=== PATIENT | female | born 1965 | race Hispanic/Latino ===

== ENCOUNTER 2018-04-04 16:43 | Inpatient (IN) | payer SELFPAY ==
[~2018-04-04 16:43] MED LIST: ISOVUE-370 76%-LOCM 1 ML ONE; PROPOFOL 200 MG/20 ML VIAL ONE; Succinylcholine Chloride 20 MG/ML 10 ml SYRINGE FS ONE
[2018-04-04 17:27] LABS: Hemoglobin 13.3 g/dL (12.0-16.0); Mean Corpuscular HGB CONC 33.1 g/dL (32.0-36.0); Mean Corpuscular Hemoglobin 30.9 pg (27.0-31.0); Mean Corpuscular Volume 93.3 fL (78.0-98.0); Mean Platelet Volume 7.4 fL (7.4-10.4); Platelet Count 274 thou/uL (130-400); RBC Distribution Width 14.5 % (11.5-14.5); Red Blood Cell (RBC) Count 4.32 mill/uL (4.20-5.40); White Blood Cell (WBC) Count 20.2 thou/uL (4.8-10.8)
[2018-04-04 17:43] LABS: ALT (SGPT) 45 U/L (8-55); AST (SGOT) 15 U/L (5-34); Albumin 3.5 g/dL (3.5-5.0); Alkaline Phosphatase 190 U/L (40-150); Anion Gap 15 mmol/L (10-20); BUN (Urea Nitrogen) 16 mg/dL (7.0-18.7); Bilirubin, Total 1.1 mg/dL (0.2-1.2); Calc. Creatinine Clearance 0 mL/min (70-130); Calcium 9.5 mg/dL (7.8-10.44); Carbon Dioxide 23 mmol/L (22-29); Chloride 104 mmol/L (98-107); Estimated GFR-MDRD 38; Glucose 124 mg/dL (70-105); Potassium 3.9 mmol/L (3.5-5.1); Protein, Total 7.5 g/dL (6.0-8.3); Sodium 138 mmol/L (136-145)
[2018-04-04 17:52] LABS: Band 33 % (5-11); Lymphocytes 4 % (21-51); MDiff Complete? YES; Monocytes 9 % (0-10); Neutrophil 54 % (42-75); PLT Morphology Comment Appears Adequate
[2018-04-04] MEDS ORDERED: Morphine 4 MG/ML VIAL ONE (20:19)
[2018-04-04] MEDS ORDERED: Piperacillin/Tazobactam 4.5 GM VIAL ONE (20:48)
[2018-04-04] MEDS ORDERED: Bupivacaine/Epinephrine 0.25% 30 ML VIAL ONE (23:06)
--- NOTE | 2018-04-04 23:18 | CT ---
CT ABDOMEN WITH CONTRAST CT PELVIS WITH CONTRAST: DATE: 04/04/18 at 10:07 p.m. HISTORY: 52-year-old female with gluteal abscess, abdominal pain, nausea, emesis, and fever. COMPARISON: None available. TECHNIQUE: IV injection of iodinated contrast media: Isovue Oral contrast media: Not administered. FINDINGS: To the left of the intergluteal fold, there is large region of fat stranding representing edema, with extensive subcutaneous gas throughout this area, reaching deep into the tissues anteriorly and poste riorly in the medial paragluteal fat, almost reaching the mons pubis on the left. There are multiple enlarged left inguinal lymph nodes. There are multiple diverticula in the sigmoid colon and descending colon. There is a subtle, small re gion of mild fat stranding consistent with edema, adjacent to the sigmoid colon. The urinary bladder, abdominal aorta, bilateral kidneys, adrenals, pancreas, liver, spleen, and appen caryn, are normal. No small bowel dilation. No ascites or pneumoperitoneum. Extensive streaky, mostly p late-like densities in the bilateral lower lobes, left greater than right, probably presenting subseg mental atelectasis. Lap band around the proximal aspect of the stomach is visualized, but it is not c onnected to any catheter. IMPRESSION: 1. 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 2. Evidence for mild sigmoid colonic diverticulitis. 3. Laparoscopic gastric band, but without accessible catheter and external port. EVERARDO Ramachandran POS: INDIRA
[2018-04-05] MEDS ORDERED: Fentanyl 100 MCG/2 ML VIAL ONE (00:58)
[2018-04-05] MEDS ORDERED: Piperacillin/Tazobactam 4.5 GM in Sodium Chloride 0.9% 100 ML IVPB SCH (02:15)
[2018-04-05] MEDS ORDERED: Fentanyl 250 MCG/5 ML VIAL ONE (02:47)
[2018-04-05] MEDS ORDERED: Promethazine HCl 25 MG/ML VIAL IM PRN ×4 (04:10→04:11)
[2018-04-05] MEDS ORDERED: diphenhydrAMINE 50 MG/ML VIAL IVP PRN ×2 (04:10→04:11)
[2018-04-05] MEDS ORDERED: Zolpidem Tartrate 5 MG TAB PO PRN ×2 (04:10→04:11)
[2018-04-05] MEDS ORDERED: fentaNYL Citrate/PF 2,000 MCG in Sodium Chloride 0.9% 60 ML IV PRN (04:10)
[2018-04-05] MEDS ORDERED: Naloxone HCl 0.4 mg/ml Vial IV PRN ×2 (04:10→04:11)
[2018-04-05] MEDS ORDERED: Promethazine HCl 25 MG/ML VIAL SLOW IVP PRN ×2 (04:10→04:11)
[2018-04-05] MEDS ORDERED: diphenhydrAMINE 25 MG CAP PO PRN ×2 (04:10→04:11)
[2018-04-05] MEDS ORDERED: diphenhydrAMINE 50 MG/ML VIAL IM PRN ×2 (04:10→04:11)
[2018-04-05] MEDS ORDERED: Ondansetron HCl/PF 4 MG/2 ML Vial IVP PRN ×5 (04:10→05:29)
[2018-04-05] MEDS ORDERED: Communication Order-Pharmacy FS SCH ×2 (04:15)
--- NOTE | 2018-04-05 04:25 | HP ---
REASON FOR ADMISSION: Left buttock abscess. HISTORY: Mr. Leroy is a 52-year-old woman with a 3-day history of pain in the left buttock area. She had a pimple that she popped and then according to her daughter, she kept bothering it. This mor gonzalez, when she stood up, it started draining and it has not stopped draining since then. She has had fevers and chills for the past 3 days, as well as nausea and diarrhea. She does not have any known history of diabetes, but is morbidly obese and went to [place] for a gastric band about 5 weeks ago. She did well with the surgery and states that she has lost about 40 pounds since that time. PAST MEDICAL HISTORY: Morbid obesity. PAST SURGICAL HISTORY: Recent gastric band in [place]. FAMILY HISTORY: Morbid obesity. REVIEW OF SYSTEMS: Ten-system review of systems is negative except per HPI and persistent mild abdom inal pain since her surgery, which is unchanged. PHYSICAL EXAMINATION: VITAL SIGNS: The patient is afebrile, heart rate 80, blood pressure 123/73. GENERAL: Reveals a morbidly obese woman in no acute distress. She is not diaphoretic. She is not f lushed or toxic in appearance. HEENT: Unremarkable. NECK: Supple without lymphadenopathy or palpable thyroid nodules, although the neck exam is limited by morbid obesity. HEART: Regular in its rate and rhythm without murmurs, rubs, or gallops. LUNGS: Clear to auscultation bilaterally. She has a healed upper midline incision with some thinnin g of the skin, but no fluctuance or erythema. She has mild diffuse abdominal tenderness with no foca l findings. No rigidity, rebound, or guarding. She has no palpable masses or hernias. EXTREMITIES: Warm and well perfused with normal pedal pulses. NEUROLOGIC: No focal deficits. PSYCHIATRIC: Alert, oriented, and appropriate. SKIN: Her left labia and buttock are extremely swollen and erythematous with some desquamated skin a nd 2 areas of skin that appear ischemic or necrotic. She does have some drainage from the buttock ar ea, but there is obvious fluctuance and induration remaining within the labia and buttock. LABORATORY AND X-RAY FINDINGS: White count is elevated at 20 and she has a bandemia of 33%. BUN and creatinine are 16 and 1.47, glucose is 124, alkaline phosphatase is 190. Other electrolytes are unr emarkable. CT images are reviewed and I agree with the written report. The patient has a large amou nt of edema and gas in the soft tissues of the left buttock and labial area extending towards the mon s. This could represent a large gas forming abscess, but is also concerning for necrotizing soft tis izzy infection. ASSESSMENT: Large abscess or possible Shayan's. PLAN: I have recommended emergent incision and debridement in the operating room. She has been star laura on antibiotics in the emergency room of Zosyn and vancomycin. We will continue her on broad-spec trum antibiotics postoperatively. She understands that she will have open wounds, which will require ongoing wound care to heal. Incidentally, the patient also has a subtle area of stranding around th e sigmoid colon, which has multiple diverticula and this was concerning for early diverticulitis that should also be covered by her current antibiotics.
[2018-04-05] MEDS: D5 1/2 NS w/20 mEq KCL 1,000 ML IV SCH ×3 (06:11→21:53)
[2018-04-05] MEDS: Piperacillin/Tazobactam 4.5 GM in Sodium Chloride 0.9% 100 ML IVPB SCH ×3 (06:12→17:59)
[2018-04-05] MEDS: Acetaminophen 1,000 MG in Premix Bag 1 BAG IVPB SCH ×4 (06:12→17:59)
[2018-04-05 06:51] VITALS: BMI 56.8
[2018-04-05] MEDS: Enoxaparin Sodium 40 MG/0.4 ML SYRINGE SC SCH (08:45)
[2018-04-05] MEDS: Pantoprazole 40 MG VIAL IVP SCH (08:45)
--- NOTE | 2018-04-05 16:17 | PDOC.OP ---
Operative Note - Operative Note Operative Note: PROCEDURE: Extensive debridement of Shayan's gangrene DATE OF PROCEDURE: 04/05/2018 SURGEON: Artie Almonte M.D. 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 She had extensive soft tissue gas in her left buttock and perineum and severe erythema and induration of that area. Recommendation was made to proceed emergently to the operating room for incision and debridement. PROCEDURE IN DETAIL: After informed consent was obtained and appropriate broad- spectrum antibiotics continued the patient was taken to the operating room she was placed in supine position and general endotracheal anesthesia was administered. She was then placed in lithotomy position and prepped and draped in standard sterile fashion. An incision was made over the drainage point on her left buttock and a large amount of necrotic infected tissue encountered. The infectious process tracked subcutaneously anteriorly almost the level of the mons pubis and this entire area was opened up. Some of the overlying skin was nonviable and was sharply resected. All of the underlying nonviable infected fat was resected. This extended medially to the muscular fascia of the left thigh, although the fascia itself appeared viable, and all the way to the pubic ramus which was easily palpable within the wound, although not directly exposed, once the necrotic fat was resected. Medially, the rectus process extended to the dermis of the skin and was in fairly close proximity to the vaginal wall although this was not exposed. Posteriorly the infectious process extended laterally beneath the buttock and this entire area was opened up and debridement as well. Once all of the nonviable and infected tissue was resected , the patient had a large wound extending from her buttock to her mons pubis. The remaining tissues appeared viable and the foul odor encountered during debridement was no longer present within the wound. The wound was irrigated and hemostasis obtained using Bovie electrocautery as needed. The wound was then packed with 2 Betadine soaked Kerlix rolls and dressed with ABD pads and tape. Once the wound was completely covered, a Millan catheter was sterilely placed to assist with wound hygiene. The patient was extubated and taken to the recovery room in good condition. Estimated blood loss was 50 mL's. There were no complications. Specimen is pus for Gram stain and culture and a small sample of necrotic skin and subcutaneous tissue for pathology.
[2018-04-06] MEDS: Acetaminophen 1,000 MG in Premix Bag 1 BAG IVPB SCH ×2 (01:02→06:13)
[2018-04-06] MEDS: Piperacillin/Tazobactam 4.5 GM in Sodium Chloride 0.9% 100 ML IVPB SCH ×4 (01:03→17:39)
[2018-04-06] MEDS: Pantoprazole 40 MG VIAL IVP SCH (08:15)
[2018-04-06] MEDS: fentaNYL Citrate/PF 2,000 MCG in Sodium Chloride 0.9% 60 ML IV PRN (08:26)
[2018-04-06] MEDS: Enoxaparin Sodium 40 MG/0.4 ML SYRINGE SC SCH (09:01)
[2018-04-06] MEDS ORDERED: Fentanyl 100 MCG/2 ML VIAL ONE ×3 (10:58→13:37)
[2018-04-06] MEDS ORDERED: Ondansetron HCl/PF 4 MG/2 ML Vial IVP PRN (12:20)
[2018-04-06] MEDS ORDERED: Meperidine HCl/PF 25 MG/ML VIAL SLOW IVP PRN (12:20)
[2018-04-06] MEDS ORDERED: Promethazine HCl 25 MG/ML VIAL SLOW IVP PRN (12:20)
[2018-04-06] MEDS ORDERED: Promethazine HCl 25 MG/ML VIAL IM PRN (12:20)
[2018-04-06] MEDS ORDERED: Dexamethasone 20 MG/5 ML VIAL ONE (15:16)
[2018-04-06] MEDS ORDERED: Glycopyrrolate 0.2 MG/ML 5 ML SYRINGE ONE (15:16)
[2018-04-06] MEDS ORDERED: Ondansetron HCl/PF 4 MG/2 ML Vial ONE (15:16)
[2018-04-06] MEDS ORDERED: ePHEDrine/0.9% NaCl/PF SYRINGE 50 mg/10 ml ONE (15:16)
[2018-04-06] MEDS ORDERED: PROPOFOL 200 MG/20 ML VIAL ONE (15:16)
[2018-04-06] MEDS ORDERED: Succinylcholine Chloride 20 MG/ML 10 ml SYRINGE FS ONE (15:16)
[2018-04-06] MEDS ORDERED: Lidocaine 1% PF 5 ML VIAL ONE (15:16)
[2018-04-06] MEDS: D5 1/2 NS w/20 mEq KCL 1,000 ML IV SCH (15:57)
--- NOTE | 2018-04-06 16:53 | PDOC.OP ---
Operative Note - Operative Note Operative Note: PROCEDURE: Repeat washout and debridement of left Shayan's gangrene. DATE OF PROCEDURE: 04/06/2018 SURGEON: Artie Almonte M.D. 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 She has been clinically stable and returns for repeat washout. PROCEDURE IN DETAIL: After informed consent was obtained and appropriate preoperative antibodies continued the patient was taken to the operating room. She was placed in supine position and general endotracheal anesthesia was administered. She was prepped and draped in standard sterile fashion and the wound carefully examined. There was a small rim of necrotic skin posteriorly at the buttocks which was sharply excised back to healthy bleeding tissue. There were a few scattered areas of superficial necrotic fat which were sharply debrided. Underlying tissues appeared healthy and there was no evidence of continued or progressive infection. The wound was irrigated and hemostasis verified. The wound care team then arrived to place the vacuum dressing to the wound and the patient was taken to recovery and stable condition.. Estimated blood loss was minimal. There were no complications. There were no specimens.
[2018-04-06 20:41] LABS: Vancomycin, Trough 9.7 ug/mL
[2018-04-06] MEDS: Saccharomyces boulardii 250 MG CAP PO SCH (22:09)
[2018-04-07] MEDS: Piperacillin/Tazobactam 4.5 GM in Sodium Chloride 0.9% 100 ML IVPB SCH ×4 (00:15→17:20)
[2018-04-07] MEDS: D5 1/2 NS w/20 mEq KCL 1,000 ML IV SCH ×3 (00:16→21:57)
[2018-04-07 06:05] LABS: Anion Gap 15 mmol/L (10-20); BUN (Urea Nitrogen) 12 mg/dL (7.0-18.7); Calc. Creatinine Clearance 158 mL/min (70-130); Calcium 8.1 mg/dL (7.8-10.44); Carbon Dioxide 20 mmol/L (22-29); Chloride 105 mmol/L (98-107); Estimated GFR-MDRD 70; Glucose 180 mg/dL (70-105); Potassium 4.2 mmol/L (3.5-5.1); Sodium 136 mmol/L (136-145)
[2018-04-07 07:19] LABS: Band 24 % (5-11); Hemoglobin 10.5 g/dL (12.0-16.0); Lymphocytes 14 % (21-51); MDiff Complete? YES; Mean Corpuscular HGB CONC 31.7 g/dL (32.0-36.0); Mean Corpuscular Hemoglobin 29.3 pg (27.0-31.0); Mean Corpuscular Volume 92.6 fL (78.0-98.0); Monocytes 4 % (0-10); Myelocyte 1 % (0-0); Neutrophil 57 % (42-75); Platelet Count 278 thou/uL (130-400); Red Blood Cell (RBC) Count 3.58 mill/uL (4.20-5.40); White Blood Cell (WBC) Count 10.7 thou/uL (4.8-10.8)
[2018-04-07 08:25] LABS: Vancomycin, Trough 17.9 ug/mL
[2018-04-07] MEDS: Pantoprazole 40 MG VIAL IVP SCH (08:40)
[2018-04-07] MEDS: Metamucil PACK PO SCH (08:40)
[2018-04-07] MEDS: Saccharomyces boulardii 250 MG CAP PO SCH ×2 (08:40→21:56)
[2018-04-07] MEDS: Enoxaparin Sodium 40 MG/0.4 ML SYRINGE SC SCH (08:41)
[2018-04-07] MEDS: Vancomycin HCl 1.5 GM in Sodium Chloride 0.9% 250 ML 300 ML IVPB SCH ×2 (10:04→21:57)
--- NOTE | 2018-04-07 10:49 | EKG ---
Test Reason : Blood Pressure : / mmHG Vent. Rate : 056 BPM Atrial Rate : 056 BPM P-R Int : 136 ms QRS Dur : 096 ms QT Int : 470 ms P-R-T Axes : 045 079 060 degrees QTc Int : 453 ms Sinus bradycardia with Premature atrial complexes Low voltage QRS Borderline ECG No previous ECGs available Confirmed by DR. Tor ORANTES ([id number]), manager editorial YARY HOLDEN ([id number]) on 04/07/2018 10:49:14 AM Referred By: KANG Confirmed By:DR. Tor ORANTES
--- NOTE | 2018-04-07 16:39 | PDOC.GSPN ---
Surgery Progress Note: Subj - Subjective Narrative: Pt feels better. AF VS nl. WBC down to 10 and creatinine back to normal. Ambulating in room. VAC in place. Plan EUA and replacement VAC in OR tomorrow. Surgery Progress Note: Obj - Vital signs Vital signs: Vital Signs - Most Recent Temp Pulse Resp BP Pulse Ox 97.9 F 50 L 20 122/62 95 04/07/18 16:34 04/07/18 16:34 04/07/18 16:34 04/07/18 16:34 04/07/18 16:34 Surgery Progress Note: Results - Labs Result Diagrams: 04/07/18 04:59 04/07/18 04:59 Lab results: Laboratory Results - last 24 hr 04/07/18 04/07/18 04/07/18 04:59 04:59 07:44 WBC 10.7 RBC 3.58 L Hgb 10.5 L Hct 33.1 L MCV 92.6 MCH 29.3 MCHC 31.7 L RDW 15.0 H Plt Count 278 MPV 7.0 L Neutrophils % (Manual) 57 Band Neuts % (Manual) 24 H Lymphocytes % (Manual) 14 L Monocytes % (Manual) 4 Myelocytes % 1 H Sodium 136 Potassium 4.2 Chloride 105 Carbon Dioxide 20 L Anion Gap 15 BUN 12 Creatinine 0.86 Estimated GFR (MDRD) 70 Glucose 180 H Calcium 8.1 Vancomycin Trough 17.9
[2018-04-07] MEDS: fentaNYL Citrate/PF 2,000 MCG in Sodium Chloride 0.9% 60 ML IV PRN (19:44)
[2018-04-08] MEDS: Piperacillin/Tazobactam 4.5 GM in Sodium Chloride 0.9% 100 ML IVPB SCH ×4 (00:52→17:35)
[2018-04-08] MEDS: Saccharomyces boulardii 250 MG CAP PO SCH ×2 (10:47→21:37)
[2018-04-08] MEDS: Metamucil PACK PO SCH (10:47)
[2018-04-08] MEDS: Enoxaparin Sodium 40 MG/0.4 ML SYRINGE SC SCH (10:48)
[2018-04-08] MEDS: D5 1/2 NS w/20 mEq KCL 1,000 ML IV SCH ×2 (10:54→22:18)
[2018-04-08] MEDS: Vancomycin HCl 1.5 GM in Sodium Chloride 0.9% 250 ML 300 ML IVPB SCH (11:23)
[2018-04-08] MEDS ORDERED: Fentanyl 100 MCG/2 ML VIAL ONE (11:28)
[2018-04-08] MEDS ORDERED: Ketamine 50 MG/ML VIAL ONE (12:28)
[2018-04-08] MEDS ORDERED: Midazolam HCl 2 mg/2 ml Vial ONE (12:34)
[2018-04-08] MEDS ORDERED: ePHEDrine/0.9% NaCl/PF SYRINGE 50 mg/10 ml ONE (13:31)
[2018-04-08] MEDS ORDERED: PROPOFOL 200 MG/20 ML VIAL ONE (13:31)
[2018-04-08] MEDS ORDERED: Succinylcholine Chloride 20 MG/ML 10 ml SYRINGE FS ONE (13:31)
[2018-04-08] MEDS ORDERED: Meperidine HCl/PF 25 MG/ML VIAL SLOW IVP PRN (14:29)
[2018-04-08] MEDS ORDERED: Promethazine HCl 25 MG/ML VIAL SLOW IVP PRN (14:29)
[2018-04-08] MEDS ORDERED: Promethazine HCl 25 MG/ML VIAL IM PRN (14:29)
[2018-04-08] MEDS ORDERED: Ondansetron HCl/PF 4 MG/2 ML Vial IVP PRN (14:29)
[2018-04-08] MEDS: Vancomycin HCl 1.25 GM in Sodium Chloride 0.9% 250 ML 250 ML IVPB SCH (16:27)
[2018-04-08] MEDS ORDERED: HYDROcodone/Acetaminophen 7.5/325 mg Tablet PO PRN (21:54)
[2018-04-08] MEDS ORDERED: Ibuprofen 600 MG TAB PO PRN (21:54)
[2018-04-08] MEDS ORDERED: Lidocaine 1% (PF) 30 ML VIAL FS SCH (22:00)
[2018-04-08] MEDS ORDERED: Fluconazole 100 MG TAB PO SCH (22:00)
[2018-04-09] MEDS: Piperacillin/Tazobactam 4.5 GM in Sodium Chloride 0.9% 100 ML IVPB SCH ×5 (00:05→23:23)
[2018-04-09] MEDS: Vancomycin HCl 1.25 GM in Sodium Chloride 0.9% 250 ML 250 ML IVPB SCH ×2 (00:53→12:36)
[2018-04-09] MEDS: HYDROcodone/Acetaminophen 7.5/325 mg Tablet PO PRN ×4 (01:11→23:20)
[2018-04-09] MEDS: D5 1/2 NS w/20 mEq KCL 1,000 ML IV SCH (03:38)
[2018-04-09] MEDS: Enoxaparin Sodium 40 MG/0.4 ML SYRINGE SC SCH (10:07)
[2018-04-09] MEDS: Saccharomyces boulardii 250 MG CAP PO SCH ×2 (10:07→20:43)
[2018-04-09] MEDS: Metamucil PACK PO SCH (10:07)
--- NOTE | 2018-04-09 18:09 | PDOC.GSPN ---
Surgery Progress Note: Subj - Subjective Narrative: Pt feels OK, pain at wound tolerable. AF VS ok. VAC in place. Will DC FC and increase activities. EUA and VAC change in OR Saturday, then transition to VAC change at bedside next week. Home if tolerates. Surgery Progress Note: Obj - Vital signs Vital signs: Vital Signs - Most Recent Temp Pulse Resp BP Pulse Ox 98.6 F 54 L 18 161/72 H 92 L 04/09/18 15:12 04/09/18 15:12 04/09/18 15:12 04/09/18 15:12 04/09/18 15:12 Surgery Progress Note: Results - Labs Result Diagrams: 04/07/18 04:59 04/07/18 04:59 Lab results: Laboratory Results - last 24 hr 04/09/18 04/09/18 11:27 15:09 POC Glucose 125 H 111 H
[2018-04-09 23:27] LABS: Vancomycin, Trough 19.7 ug/mL
[2018-04-10] MEDS: Vancomycin HCl 1.25 GM in Sodium Chloride 0.9% 250 ML 250 ML IVPB SCH ×2 (00:19→11:53)
[2018-04-10] MEDS: HYDROcodone/Acetaminophen 7.5/325 mg Tablet PO PRN ×3 (05:31→20:27)
[2018-04-10] MEDS: Piperacillin/Tazobactam 4.5 GM in Sodium Chloride 0.9% 100 ML IVPB SCH ×3 (05:31→17:48)
[2018-04-10] MEDS: Enoxaparin Sodium 40 MG/0.4 ML SYRINGE SC SCH (09:22)
[2018-04-10] MEDS: Metamucil PACK PO SCH (09:23)
[2018-04-10] MEDS: Saccharomyces boulardii 250 MG CAP PO SCH ×2 (09:23→20:26)
--- NOTE | 2018-04-10 14:35 | PDOC.GSPN ---
Surgery Progress Note: Subj - Subjective Narrative: Patient is feeling okay. She has a little pain but it is tolerable. Mostly she is hurting in her back. She tried to sit in a chair but does too painful on her incision, so she has mostly been standing. Her VAC dressing is intact with serosanguineous drainage. We will plan on one more dressing change under anesthesia tomorrow, and transition to VAC changes at the bedside next week. If she tolerates this she'll be discharged home with outpatient VAC changes at the wound care center. Her bora VAC has already been approved. Surgery Progress Note: Obj - Vital signs Vital signs: Vital Signs - Most Recent Temp Pulse Resp BP Pulse Ox 98.2 F 57 L 20 179/99 H 94 L 04/10/18 11:50 04/10/18 11:50 04/10/18 11:50 04/10/18 11:50 04/10/18 12:00 Surgery Progress Note: Results - Labs Result Diagrams: 04/07/18 04:59 04/07/18 04:59 Lab results: Laboratory Results - last 24 hr 04/10/18 04/10/18 05:45 11:49 POC Glucose 106 129 H
[2018-04-11] MEDS: Piperacillin/Tazobactam 4.5 GM in Sodium Chloride 0.9% 100 ML IVPB SCH ×4 (00:23→18:09)
[2018-04-11] MEDS: Vancomycin HCl 1.25 GM in Sodium Chloride 0.9% 250 ML 250 ML IVPB SCH ×2 (00:24→11:43)
[2018-04-11] MEDS: HYDROcodone/Acetaminophen 7.5/325 mg Tablet PO PRN ×2 (00:37→21:34)
[2018-04-11 09:49] LABS: Anion Gap 9 mmol/L (10-20); BUN (Urea Nitrogen) 7 mg/dL (7.0-18.7); Calc. Creatinine Clearance 144 mL/min (70-130); Calcium 8.4 mg/dL (7.8-10.44); Carbon Dioxide 29 mmol/L (22-29); Chloride 105 mmol/L (98-107); Estimated GFR-MDRD 63; Glucose 109 mg/dL (70-105); Potassium 3.8 mmol/L (3.5-5.1); Sodium 139 mmol/L (136-145)
[2018-04-11] MEDS: Saccharomyces boulardii 250 MG CAP PO SCH ×2 (09:49→21:31)
[2018-04-11] MEDS: Enoxaparin Sodium 40 MG/0.4 ML SYRINGE SC SCH (09:49)
[2018-04-11] MEDS: Metamucil PACK PO SCH (09:50)
[2018-04-11 10:03] LABS: Band 11 % (5-11); Hemoglobin 11.2 g/dL (12.0-16.0); Lymphocytes 5 % (21-51); MDiff Complete? YES; Mean Corpuscular HGB CONC 33.3 g/dL (32.0-36.0); Mean Corpuscular Volume 92.8 fL (78.0-98.0); Mean Platelet Volume 6.4 fL (7.4-10.4); Monocytes 2 % (0-10); Neutrophil 82 % (42-75); PLT Morphology Comment Appears Increased; Platelet Count 410 thou/uL (130-400); RBC Distribution Width 14.8 % (11.5-14.5); Red Blood Cell (RBC) Count 3.61 mill/uL (4.20-5.40); White Blood Cell (WBC) Count 11.1 thou/uL (4.8-10.8)
[2018-04-11 11:15] LABS: Vancomycin, Trough 24.9 ug/mL
[2018-04-11] MEDS ORDERED: Lidocaine 1% PF 5 ML VIAL ONE (14:53)
[2018-04-11] MEDS ORDERED: Glycopyrrolate 0.2 MG/ML 5 ML SYRINGE ONE (14:53)
[2018-04-11] MEDS ORDERED: Succinylcholine Chloride 20 MG/ML 10 ml SYRINGE FS ONE (14:53)
[2018-04-11] MEDS ORDERED: Ondansetron HCl/PF 4 MG/2 ML Vial ONE (14:53)
[2018-04-11] MEDS ORDERED: PROPOFOL 200 MG/20 ML VIAL ONE (14:53)
[2018-04-11] MEDS ORDERED: Fentanyl 100 MCG/2 ML VIAL ONE ×2 (16:14→17:23)
[2018-04-11] MEDS ORDERED: Ondansetron HCl/PF 4 MG/2 ML Vial IVP PRN (17:21)
[2018-04-11] MEDS ORDERED: Morphine Sulfate 2 MG/ML SYRINGE SLOW IVP PRN (17:21)
[2018-04-11] MEDS ORDERED: HYDROmorphone 2 MG/ML VIAL SLOW IVP PRN (17:21)
[2018-04-12] MEDS: Piperacillin/Tazobactam 4.5 GM in Sodium Chloride 0.9% 100 ML IVPB SCH ×5 (00:31→23:58)
[2018-04-12] MEDS: Vancomycin HCl 1 GM in Premix Bag 1 BAG IVPB SCH ×2 (00:39→15:37)
[2018-04-12] MEDS: HYDROcodone/Acetaminophen 7.5/325 mg Tablet PO PRN ×3 (09:45→20:27)
[2018-04-12] MEDS: Metamucil PACK PO SCH (09:46)
[2018-04-12] MEDS: Saccharomyces boulardii 250 MG CAP PO SCH ×2 (09:46→20:26)
[2018-04-12] MEDS: Enoxaparin Sodium 40 MG/0.4 ML SYRINGE SC SCH (09:46)
--- NOTE | 2018-04-12 14:24 | TCOM ---
DATE OF SERVICE: 04/12/2018 SUBJECTIVE: The patient reports that her pain is moderate. She got out of bed and ripped the tubing out of her wound VAC, so it is no longer connected to suction. PHYSICAL EXAMINATION: VITAL SIGNS: Her temperature is 98.8, pulse 62, blood pressure 146/71. GENERAL: She is morbidly obese female, does not appear to be in any significant distress. She is ricci ving bowel movements, voiding well. LABORATORY DATA: Her white count is 11, H&H 11 and 33, platelet count 410,000. She has methicillin- resistant Staph and Morganella morganii as well as some anaerobic cocci in her wound. She is current ly on Zosyn and vancomycin. ASSESSMENT: Stable. PLAN: Continue IV antibiotics and wound care. We will get wound care to redo the wound VAC.
[2018-04-13] MEDS: HYDROcodone/Acetaminophen 7.5/325 mg Tablet PO PRN ×3 (01:13→18:41)
[2018-04-13] MEDS: Vancomycin HCl 1 GM in Premix Bag 1 BAG IVPB SCH ×2 (03:37→17:18)
[2018-04-13] MEDS: Piperacillin/Tazobactam 4.5 GM in Sodium Chloride 0.9% 100 ML IVPB SCH ×3 (05:18→18:37)
[2018-04-13] MEDS: Metamucil PACK PO SCH (09:37)
[2018-04-13] MEDS: Enoxaparin Sodium 40 MG/0.4 ML SYRINGE SC SCH (09:43)
[2018-04-13] MEDS: Saccharomyces boulardii 250 MG CAP PO SCH ×2 (09:43→20:45)
--- NOTE | 2018-04-13 15:35 | PRG ---
DATE OF SERVICE: 04/13/2018 SUBJECTIVE: The patient states her pain is about a 5/10. She is ambulating. OBJECTIVE: VITAL SIGNS: Temperature is 97.6, pulse 54, blood pressure 165/71. GENERAL: She looks fine. Awake, alert, in no apparent distress. She is voiding well. She had 2 merritt wel movements yesterday. EXTREMITIES: She has a wound VAC in place. PLAN: She is going to have a wound VAC change either tomorrow or Saturday and depending on how the wo und looks, Dr. Almonte decide if she can go home.
[2018-04-13 16:05] LABS: Vancomycin, Trough 18.4 ug/mL
[2018-04-14] MEDS: Piperacillin/Tazobactam 4.5 GM in Sodium Chloride 0.9% 100 ML IVPB SCH ×2 (01:14→06:37)
[2018-04-14] MEDS: HYDROcodone/Acetaminophen 7.5/325 mg Tablet PO PRN ×4 (01:14→23:49)
[2018-04-14] MEDS: Vancomycin HCl 1 GM in Premix Bag 1 BAG IVPB SCH (04:00)
[2018-04-14] MEDS: Enoxaparin Sodium 40 MG/0.4 ML SYRINGE SC SCH (10:30)
[2018-04-14] MEDS: Saccharomyces boulardii 250 MG CAP PO SCH ×2 (10:30→20:37)
[2018-04-14] MEDS: Clindamycin 150 MG CAP PO SCH ×3 (10:30→20:37)
[2018-04-14] MEDS: Metamucil PACK PO SCH (10:34)
[2018-04-14] MEDS: Ciprofloxacin 500 MG TAB PO SCH (20:37)
[2018-04-14] MEDS ORDERED: hydrALAZINE 20 MG/ML VIAL SLOW IVP PRN (22:19)
--- NOTE | 2018-04-14 23:49 | PDOC.PN ---
- Subjective Encounter Start Date: 04/14/18 Encounter Start Time: 21:00 CC: Elevated BP. We have been consulted to evaluated patient's BP which is 176 systolic. Patient states that she is feeling well now. Doesn't have any acute distress. - Objective MAR Reviewed: Yes Vital Signs & Weight: Vital Signs (12 hours) Temp Pulse Resp BP BP Pulse Ox 04/14/18 20:37 98.4 F 55 L 16 97 04/14/18 20:35 98.4 F 55 L 16 138/74 97 04/14/18 15:55 98.6 F 58 L 16 169/85 H 92 L Weight Admit Weight 281 lb Weight 281 lb 8 oz I&O: 04/13/18 04/14/18 04/15/18 06:59 06:59 06:59 Intake Total 1210 1540 Balance 1210 1540 Result Diagrams: 04/11/18 09:19 04/11/18 09:19 Additional Labs: Accuchecks 04/14/18 04/14/18 04/14/18 15:39 10:46 06:38 POC Glucose 107 104 116 H Phys Exam - Physical Examination Constitutional: NAD HEENT: PERRLA, moist MMs, oral pharynx no lesions Neck: no nodes, no JVD, supple, full ROM Respiratory: no wheezing, no rales, no rhonchi, clear to auscultation bilateral Cardiovascular: RRR, no significant murmur Gastrointestinal: soft, non-tender, no distention, positive bowel sounds Musculoskeletal: no edema, pulses present Neurological: non-focal, normal sensation, moves all 4 limbs Psychiatric: normal affect, A&O x 3 Deviation from normal: Abscess at left buttock Dx/Plan (1) Left buttock abscess Code(s): L02.31 - CUTANEOUS ABSCESS OF BUTTOCK Status: Acute Comment: s/p ID. follow surgery's recs. (2) Hypertension Code(s): I10 - ESSENTIAL (PRIMARY) HYPERTENSION Status: Acute Comment: Hydralazin prn for systolic of 180. Started lisnopril 10mg and hydrochlorothiazide 12.5 since the blood pressure has been uncontrolled at 176 systolic. Follow blood pressure closely. (3) Obesity Code(s): E66.9 - OBESITY, UNSPECIFIED Status: Acute - Plan * . See above. Review of Systems - Review of Systems Constitutional: negative: fever, chills, sweats, weakness, malaise, other Eyes: negative: Pain, Vision Change, Conjunctivae Inflammation, Eyelid Inflammation, Redness, Other ENT: negative: Ear Pain, Ear Discharge, Nose Pain, Nose Discharge, Nose Congestion, Mouth Pain, Mouth Swelling, Throat Pain, Throat Swelling, Other Respiratory: negative: Cough, Dry, Shortness of Breath, Hemoptysis, SOB with Excertion, Pleuritic Pain, Sputum, Wheezing Cardiovascular: negative: chest pain, palpitations, orthopnea, paroxysmal nocturnal dyspnea, edema, light headedness, other Gastrointestinal: negative: Nausea, Vomiting, Abdominal Pain, Diarrhea, Constipation, Melena, Hematochezia, Other Genitourinary: negative: Dysuria, Frequency, Incontinence, Hematuria, Retention , Other Musculoskeletal: negative: Neck Pain, Shoulder Pain, Arm Pain, Back Pain, Hand Pain, Leg Pain, Foot Pain, Other Skin: Other (Abscess at the buttock with wound vac in place. ). negative: Rash , Lesions, Jm, Bruising Neurological: negative: Weakness, Numbness, Incoordination, Change in Speech, Confusion, Seizures, Other - Medications/Allergies Allergies/Adverse Reactions: Allergies Allergy/AdvReac Type Severity Reaction Status Date / Time No Known Drug Allergies Allergy Verified 04/05/18 05:20 Medications: Current Medications Hydrocodone Bitart/Acetaminophen ([place] 7.5/325) 1 tab PO Q4H PRN PRN Reason: Mild-Moderate Pain (1-5) Hydrocodone Bitart/Acetaminophen ([place] 7.5/325) 2 tab PO Q4H PRN PRN Reason: Moderate to Severe Pain (6-10) Last Admin: 04/14/18 16:01 Dose: 2 tab Ciprofloxacin (Cipro) 500 mg PO 0600,2000 [facility] Last Admin: 04/14/18 20:37 Dose: 500 mg Clindamycin HCl (Cleocin) 300 mg PO 0300,0900,1500,2100 [facility] Last Admin: 04/14/18 20:37 Dose: 300 mg Diphenhydramine HCl (Benadryl) 25 mg IVP Q3H PRN PRN Reason: Itching Diphenhydramine HCl (Benadryl) 25 mg PO Q3H PRN PRN Reason: Itching Last Admin: 04/13/18 18:41 Dose: 25 mg Diphenhydramine HCl (Benadryl) 25 mg IM Q3H PRN PRN Reason: Itching Enoxaparin Sodium (Lovenox) 40 mg SC 0900 [facility] Last Admin: 04/14/18 10:30 Dose: 40 mg Hydralazine HCl (Apresoline) 10 mg SLOW IVP Q4H PRN PRN Reason: SBP > 180/100 Hydrochlorothiazide (Hydrochlorothiazide) 12.5 mg PO DAILY [facility] Ibuprofen (Motrin) 600 mg PO TID-WM PRN PRN Reason: Pain Last Admin: 04/12/18 20:27 Dose: 600 mg Lidocaine HCl (Xylocaine 1% Pf) 0 ml FS 1300 [facility] Stop: 04/15/18 15:00 Lisinopril (Zestril) 10 mg PO DAILY [facility] Morphine Sulfate (Morphine) 2 mg SLOW IVP Q1H PRN PRN Reason: BREAKTHRU PAIN Last Admin: 04/12/18 16:07 Dose: 2 mg Naloxone HCl (Narcan) 0.2 mg IV Q5MIN PRN PRN Reason: Opiate Reversal Ondansetron HCl (Zofran) 4 mg IVP Q6H PRN PRN Reason: Nausea/Vomiting Ondansetron HCl (Zofran) 4 mg IVP Q6H PRN PRN Reason: Nausea/Vomiting Pantoprazole Sodium (Protonix) 40 mg PO DAILY [facility] Last Admin: 04/14/18 10:30 Dose: 40 mg Promethazine HCl (Phenergan) 12.5 mg IM Q4H PRN PRN Reason: Nausea/Vomiting Last Admin: 04/13/18 20:45 Dose: 12.5 mg Psyllium Hydrophilic Mucilloid (Metamucil) 1 pk PO QAM [facility] Last Admin: 04/14/18 10:34 Dose: Not Given Saccharomyces Boulardii (Florastor) 250 mg PO BID [facility] Last Admin: 04/14/18 20:37 Dose: 250 mg Sodium Chloride (Flush - Normal Saline) 10 ml IVF Q12HR [facility] Last Admin: 04/14/18 20:37 Dose: 10 ml Sodium Chloride (Flush - Normal Saline) 10 ml IVF PRN PRN PRN Reason: Saline Flush Last Admin: 04/12/18 00:39 Dose: 10 ml Zolpidem Tartrate (Ambien) 5 mg PO HSPRN PRN PRN Reason: Insomnia
[2018-04-15] MEDS: Clindamycin 150 MG CAP PO SCH ×3 (03:59→14:20)
[2018-04-15] MEDS: HYDROcodone/Acetaminophen 7.5/325 mg Tablet PO PRN ×3 (04:04→14:20)
[2018-04-15] MEDS: Ciprofloxacin 500 MG TAB PO SCH (05:26)
[2018-04-15] MEDS ORDERED: Lisinopril 10 MG TAB PO SCH (09:00)
[2018-04-15] MEDS ORDERED: Hydrochlorothiazide 25 MG TAB PO SCH (09:00)
[2018-04-15] MEDS: Saccharomyces boulardii 250 MG CAP PO SCH (09:49)
[2018-04-15] MEDS: Enoxaparin Sodium 40 MG/0.4 ML SYRINGE SC SCH (09:49)
[2018-04-15] MEDS: Metamucil PACK PO SCH (10:32)
[2018-04-15] MEDS ORDERED: Lidocaine 1% MPF 2 ML VIAL NERVE BLCK SCH (12:45)
[2018-04-15] MEDS ORDERED: Lidocaine 1% PF 10 ML AMP FS SCH (13:00)
--- NOTE | 2018-04-15 16:09 | PDOC.PN ---
- Subjective Encounter Start Date: 04/15/18 Encounter Start Time: 16:00 Subjective: f/u for HTN initiated on Metoprolol and HCTZ. No new complaints. - Objective MAR Reviewed: Yes Vital Signs & Weight: Vital Signs (12 hours) Temp Pulse Resp BP BP Pulse Ox 04/15/18 11:40 98.3 F 76 20 141/61 H 91 L 04/15/18 09:49 156/76 H 04/15/18 08:33 98.5 F 57 L 16 92 L 04/15/18 08:00 98.3 F 58 L 18 156/76 H 92 L Weight Admit Weight 281 lb Weight 281 lb 8 oz I&O: 04/14/18 04/15/18 04/16/18 06:59 06:59 06:59 Intake Total 1540 Balance 1540 Result Diagrams: 04/11/18 09:19 04/11/18 09:19 Additional Labs: Accuchecks 04/14/18 15:39 POC Glucose 107 Phys Exam - Physical Examination Constitutional: NAD HEENT: PERRLA, sclera anicteric, oral pharynx no lesions Neck: no nodes, no JVD, supple, full ROM Respiratory: no wheezing, no rales, no rhonchi, clear to auscultation bilateral S1, S2 Cardiovascular: RRR, no significant murmur, no rub, gallop Gastrointestinal: soft, non-tender, no distention, positive bowel sounds L buttock wound vac in place Musculoskeletal: pulses present Neurological: normal sensation, moves all 4 limbs Psychiatric: normal affect, A&O x 3 Skin: normal turgor, cap refill <2 seconds Dx/Plan (1) Hypertension Code(s): I10 - ESSENTIAL (PRIMARY) HYPERTENSION Status: Chronic Qualifiers: Hypertension type: essential hypertension Qualified Code(s): I10 - Essential (primary) hypertension Comment: Hydralazin prn for systolic of 180. Started lisnopril 10mg and hydrochlorothiazide 12.5mg daily, continue to monitor trend and titrate to clinical response (2) Left buttock abscess Code(s): L02.31 - CUTANEOUS ABSCESS OF BUTTOCK Status: Acute Comment: s/p ID for Shayan's gangrene, Continue Clindamycin, local wound care with wound vac (3) Obesity Code(s): E66.9 - OBESITY, UNSPECIFIED Status: Chronic Comment: Heart healthy diet - Plan continue antibiotics, rn social services, DVT proph w/SCDs Stable overall -: Continue HCTZ and Metoprolol, titrate for optimal control -: WCT for local care and wound vac -: Continue Clindamycin 300mg QID -: AM lab: BMP, TSH * .
[2018-04-15 16:33] VITALS: BP 132/65; TEMP 98
--- NOTE | 2018-04-16 17:35 | PDOC.OP ---
Operative Note - Operative Note Operative Note: PROCEDURE: Examination under anesthesia DATE OF PROCEDURE: 04/08/2018 SURGEON: Artie Almonte M.D. 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 At the time of her last operation she required only minimal debridement but her pain is still too severe for her to tolerate VAC dressings at the bedside. The recommendation was made to proceed to the operating room for examination under anesthesia in fact dressing change. PROCEDURE IN DETAIL: After informed consent was obtained and appropriate preoperative antibodies continued the patient was taken to the operating which was placed in supine position and general intravenous anesthesia was administered. She was placed in lithotomy position with appropriate padding and support of her legs and the VAC dressing was removed. The wound was carefully examined did not have any evidence of necrotic or infected tissue. No debridement was necessary. The wound care team then replaced the VAC dressing and the patient was extubated and taken to recovery in good condition. Estimated blood loss is minimal. There were no complications and no specimens..
--- NOTE | 2018-04-16 17:39 | PDOC.OP ---
Operative Note - Operative Note Operative Note: PROCEDURE: Examination under anesthesia DATE OF PROCEDURE: 04/11/18 SURGEON: Artie Almonte M.D. 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 Her wound appears to be stable without evidence of ongoing infection but she is unable to tolerate dressing changes at the bedside due to the extensive nature of her wound. Recommendation was made to proceed to the operating room for exam under anesthesia and replacement of her VAC dressing. PROCEDURE IN DETAIL: After informed consent was obtained and appropriate preoperative antibiotics continued the patient was taken to the operating room where she was placed in supine position and general tracheal anesthesia was administered. She was placed in lithotomy position and the VAC dressing was removed. Wound was carefully examined and no evidence of advancing necrosis or infection was identified. There were a few areas of questionably viable fat in the posterior area which were not yet granulating but the remainder of the wound was clean and granulating and no debridement was needed. The wound care team then replaced the patient's VAC dressing and she was extubated and taken to recovery in good condition. Estimated blood loss was minimal. There were no complications. There were no specimens.
== END 2018-04-15 18:35 | disposition home or self-care (01) | DRG 749 ==
LOC: ERS 16:43 → SDC/OP 04-05 01:00 → SJJU 04-05 04:36
PROVIDERS: ADMIT Surgery; ATTEND Surgery
PROC: 0JB90ZZ Excision of Buttock Subcutaneous Tissue and Fascia, Open Approach (ICD-10-PCS; principal; 2018-04-05)
PROC: 0JBC0ZZ Excision of Pelvic Region Subcutaneous Tissue and Fascia, Open Approach (ICD-10-PCS; 2018-04-05)
PROC: 3E10X8Z Irrigation of Skin and Mucous Membranes using Irrigating Substance (ICD-10-PCS; 2018-04-06)
PROC: 3E10X8Z Irrigation of Skin and Mucous Membranes using Irrigating Substance (ICD-10-PCS; 2018-04-11)
DX: N76.89 Other specified inflammation of vagina and vulva (principal); M72.6 Necrotizing fasciitis; L02.31 Cutaneous abscess of buttock; Z68.43 Body mass index [BMI] 50.0-59.9, adult; E66.01 Morbid (severe) obesity due to excess calories; Z98.84 Bariatric surgery status; I10 Essential (primary) hypertension
CPT/HCPCS: 36415; 36416; 74177; 80048; 80053; 80202; 83605; 85025; 87040; 87070; 87077; 87186; 87205; 88304; 93005; 93010; 94760; 96361; 96365; 96366; 96368; 96374; A4216; C9113; G8978-GP-CL; G8979-GP-CJ; J0131; J0360; J1100; J1650; J2001; J2250; J2270; J2405; J2543; J2550; J2704; J3010; J3370; J7050; J7620

== ENCOUNTER 2018-04-18 15:33 | Outpatient (CLI) | payer SELFPAY ==
[~2018-04-18 15:33] MED LIST changes: -ISOVUE-370 76%-LOCM 1 ML ONE; +Lidocaine 4% Topical Sol 50 ML BOT ONE; -PROPOFOL 200 MG/20 ML VIAL ONE; +Sodium Chloride 0.9% 15 ML NEB ONE; -Succinylcholine Chloride 20 MG/ML 10 ml SYRINGE FS ONE
== END 2018-04-18 15:34 | disposition home or self-care (01) ==
LOC: WCC 15:33
PROVIDERS: ATTEND Family Medicine
DX: T81.89XD Other complications of procedures, not elsewhere classified, subsequent encounter (principal)
CPT/HCPCS: 97606; A4218; J2001

== ENCOUNTER 2018-04-21 09:26 | Outpatient (CLI) | payer SELFPAY ==
[2018-04-21] MEDS ORDERED: Sodium Chloride 0.9% 15 ML NEB ONE (15:45)
== END 2018-04-21 09:27 | disposition home or self-care (01) ==
LOC: WCC 09:26
PROVIDERS: ATTEND Family Medicine
DX: T81.89XD Other complications of procedures, not elsewhere classified, subsequent encounter (principal)
CPT/HCPCS: 97606; A4218

== ENCOUNTER 2018-04-24 09:27 | Outpatient (CLI) | payer SELFPAY ==
--- NOTE | 2018-04-24 12:16 | HP ---
DATE OF SERVICE: 04/24/2018 HISTORY OF PRESENT ILLNESS: Ms. Bella Leroy is a very pleasant 52-year-old who presents to the [facility] for evaluation of a large wound of the left labia and buttock subsequent to debridement for Shayan's gangrene on 04/05/2018. The patient underwent repeat debridement of Shayan's gangrene on 04/06/2018. At the time of the second debridement negative pressure therapy was initiated intraop eratively. Upon discharge from [facility], the patient was referred to the [facility] for assistance with dressing changes of the wound VAC. PAST MEDICAL HISTORY: Hypertension. PAST SURGICAL HISTORY: 1. Gastric band. 2. x3. 3. Debridement of Shayan's gangrene 04/05/2018. 4. Repeat debridement of Shayan's gangrene 04/06/2018. MEDICATIONS: 1. HCTZ. 2. Lisinopril. 3. Rice. ALLERGIES: No known diagnosed allergies. SOCIAL HISTORY: The patient admits to the use of cigarettes on a "social basis" for 30 years. The p atient denies any history of ETOH use. FAMILY HISTORY: Significant for diabetes mellitus. The patient states that her grandfather was diag nosed with diabetes mellitus. Family history is negative for coronary artery disease. PHYSICAL EXAMINATION: VITAL SIGNS: Temperature 98.3, pulse 73, respirations 20, blood pressure 138/76. GENERAL: A 52-year-old female lying on stretcher in examination room in no acute distress. HEENT: Normocephalic, atraumatic. NECK: No nuchal rigidity. CHEST: Clear to auscultation. CARDIAC: Regular rate and rhythm. ABDOMEN: Soft. PERINEUM: A large wound of the left labia and buttock is present which measures approximately 24 x 4 cm. Granulation tissue is present within the wound margins. No purulent drainage is associated wit h the wound. No erythema of the skin surrounding the wound is present. No maceration of the skin of the periwound is noted. EXTREMITIES: No clubbing or cyanosis. NEUROLOGIC: Grossly nonfocal. ASSESSMENT AND PLAN: 1. Large wound of left labia and buttock subsequent to debridement for Shayan's gangrene on [address] Artie Almonte. The patient underwent repeat debridement of Shayan's gangrene on 04/06. Negative pressure therapy was initiated intraoperatively at the time of the patient's second debridement and will be continued with dressing changes of the wound VAC here in the Wound Center. N o antibiotics will be prescribed today based upon the appearance of the wound. The patient will be s een by Dr. Almonte in 1 week, and I will see Ms. Ritchiezada again in 2 weeks. 2. Hypertension.
[2018-04-24] MEDS ORDERED: Sodium Chloride 0.9% 15 ML NEB ONE (20:38)
[2018-04-24] MEDS ORDERED: Lidocaine 4% Topical Sol 50 ML BOT ONE (20:38)
== END 2018-04-24 09:28 | disposition home or self-care (01) ==
LOC: WCC 09:27
PROVIDERS: ATTEND Family Medicine
DX: Z48.817 Encounter for surgical aftercare following surgery on the skin and subcutaneous tissue (principal); I10 Essential (primary) hypertension
CPT/HCPCS: A4218; J2001

== ENCOUNTER 2018-04-27 11:28 | Emergency (ER) | payer SELFPAY ==
[2018-04-27 12:32] LABS: #Eosinphils 0.5 thou/uL (0.0-0.7); #Lymphocytes 1.6 thou/uL (1.20-3.40); #Monocytes 0.6 thou/uL (0.11-0.59); #Neutrophils 4.6 thou/uL (1.40-6.50); %Basophils 0.3 % (0.0-1.0); %Eosinophils 6.6 % (0.0-10.0); %Lymphocytes 21.7 % (21.0-51.0); %Monocytes 7.7 % (0.0-10.0); %Neutrophils 63.7 % (42.0-75.0); Hemoglobin 12.8 g/dL (12.0-16.0); Mean Corpuscular HGB CONC 32.3 g/dL (32.0-36.0); Mean Platelet Volume 7.2 fL (7.4-10.4); Platelet Count 288 thou/uL (130-400); RBC Distribution Width 15.1 % (11.5-14.5); Red Blood Cell (RBC) Count 4.27 mill/uL (4.20-5.40); White Blood Cell (WBC) Count 7.2 thou/uL (4.8-10.8)
[2018-04-27 12:53] LABS: ALT (SGPT) 28 U/L (8-55); AST (SGOT) 22 U/L (5-34); Albumin 3.8 g/dL (3.5-5.0); Alkaline Phosphatase 107 U/L (40-150); Anion Gap 13 mmol/L (10-20); BUN (Urea Nitrogen) 8 mg/dL (7.0-18.7); Bilirubin, Total 0.7 mg/dL (0.2-1.2); Calc. Creatinine Clearance 0 mL/min (70-130); Calcium 9.2 mg/dL (7.8-10.44); Carbon Dioxide 25 mmol/L (22-29); Chloride 106 mmol/L (98-107); Estimated GFR-MDRD 69; Globulin 3.3 g/dL (2.4-3.5); Glucose 142 mg/dL (70-105); Potassium 3.8 mmol/L (3.5-5.1); Protein, Total 7.1 g/dL (6.0-8.3); Sodium 140 mmol/L (136-145)
[2018-04-27] MEDS ORDERED: Morphine 4 MG/ML VIAL ONE (14:23)
== END 2018-04-27 15:40 | disposition home or self-care (01) ==
LOC: ERS 11:28
DX: T81.89XA Other complications of procedures, not elsewhere classified, initial encounter (principal); F17.210 Nicotine dependence, cigarettes, uncomplicated
CPT/HCPCS: 36415; 80053; 83605; 85025; 87040; 87070; 87077; 87149; 87186; 87205; 96374; J2270

== ENCOUNTER 2018-04-28 10:13 | Outpatient (CLI) | payer SELFPAY ==
[~2018-04-28 10:13] MED LIST changes: +Lidocaine 2% Jelly 5 ML TUBE ONE; -Lidocaine 4% Topical Sol 50 ML BOT ONE
== END 2018-04-28 10:14 | disposition home or self-care (01) ==
LOC: WCC 10:13
PROVIDERS: ATTEND Family Medicine
DX: T81.89XD Other complications of procedures, not elsewhere classified, subsequent encounter (principal)
CPT/HCPCS: 97606; 99204; A4218; G0463

== ENCOUNTER 2018-05-01 10:41 | Outpatient (CLI) | payer SELFPAY ==
[~2018-05-01 10:41] MED LIST changes: -Lidocaine 2% Jelly 5 ML TUBE ONE
== END 2018-05-01 10:42 | disposition home or self-care (01) ==
LOC: WCC 10:41
PROVIDERS: ATTEND Family Medicine
DX: T81.89XD Other complications of procedures, not elsewhere classified, subsequent encounter (principal)
CPT/HCPCS: 97606; A4218

== ENCOUNTER 2018-05-05 11:03 | Outpatient (CLI) | payer SELFPAY | END 2018-05-05 11:04 | disposition home or self-care (01) | LOC: WCC 11:03 | PROVIDERS: ATTEND Family Medicine | DX: T81.89XD Other complications of procedures, not elsewhere classified, subsequent encounter (principal) | CPT/HCPCS: 97606; A4218 ==

== ENCOUNTER 2018-05-08 10:46 | Outpatient (CLI) | payer SELFPAY ==
[~2018-05-08 10:46] MED LIST changes: +Lidocaine 2% Jelly 5 ML TUBE ONE
--- NOTE | 2018-05-08 12:38 | PRG ---
DATE OF SERVICE: 05/08/2018 HISTORY: Ms. Bella Leroy is a very pleasant 52-year-old who presents to the Wound Center for evalu ation of a large wound of the left labia and buttock subsequent to debridement for Shayan's gangren e on 04/05/2018. The patient underwent repeat debridement of Shayan's gangrene on 04/06/2018. At the time of the second debridement, negative pressure therapy was initiated intraoperatively. Upon d ischarge from [facility], the patient was referred to the Wound Center for ass istance with dressing changes of the wound VAC. PHYSICAL EXAMINATION: VITAL SIGNS: Temperature 97.8, pulse 70, respirations 18, blood pressure 119/69. PERINEUM: A large wound of the left labia and buttock is present which measures approximately 21.0 x 4 cm. Granulation tissue is present within the wound margins. No purulent drainage is associated w ith the wound. No maceration of the skin of the periwound is noted. A sample of granulation tissue within the wound margins was excised with the use of scissors and sent for aerobic and anaerobic cult ures. ASSESSMENT AND PLAN: 1. Large wound of left labia and buttock subsequent to debridement for Shayan's gangrene on [address] Artie Almonte. The patient underwent repeat debridement of Shayan's gangrene on 04/06. Negative pressure therapy was initiated intraoperatively at the time of the patient's second debridement and will be continued with dressing changes of the wound VAC here in the Wound Center. T he patient complains of an odor associated with her wound and tissue cultures were obtained today. A ntibiotic therapy will be initiated based upon the results of the tissue cultures. The patient will be seen by Dr. Almonte in 1 week. I will see Ms. Leroy again in two weeks. 2. Hypertension.
== END 2018-05-08 10:47 | disposition home or self-care (01) ==
LOC: WCC 10:46
PROVIDERS: ATTEND Family Medicine
DX: T81.89XD Other complications of procedures, not elsewhere classified, subsequent encounter (principal); I10 Essential (primary) hypertension
CPT/HCPCS: 87070; 87076; 87077; 87186; 87205; A4218

== ENCOUNTER 2018-05-12 12:41 | Emergency (ER) | payer SELFPAY ==
[2018-05-12 13:39] LABS: #Eosinphils 0.4 thou/uL (0.0-0.7); #Lymphocytes 1.5 thou/uL (1.20-3.40); #Monocytes 0.6 thou/uL (0.11-0.59); #Neutrophils 7.3 thou/uL (1.40-6.50); %Basophils 0.4 % (0.0-1.0); %Eosinophils 4.2 % (0.0-10.0); %Lymphocytes 15.4 % (21.0-51.0); %Monocytes 5.9 % (0.0-10.0); %Neutrophils 74.2 % (42.0-75.0); Hemoglobin 13.4 g/dL (12.0-16.0); Mean Corpuscular HGB CONC 31.5 g/dL (32.0-36.0); Mean Corpuscular Hemoglobin 29.2 pg (27.0-31.0); Mean Corpuscular Volume 92.7 fL (78.0-98.0); Mean Platelet Volume 7.4 fL (7.4-10.4); Platelet Count 308 thou/uL (130-400); RBC Distribution Width 14.2 % (11.5-14.5); Red Blood Cell (RBC) Count 4.59 mill/uL (4.20-5.40); White Blood Cell (WBC) Count 9.8 thou/uL (4.8-10.8)
[2018-05-12 14:01] LABS: ALT (SGPT) 22 U/L (8-55); AST (SGOT) 15 U/L (5-34); Albumin 3.7 g/dL (3.5-5.0); Alkaline Phosphatase 97 U/L (40-150); Anion Gap 13 mmol/L (10-20); BUN (Urea Nitrogen) 10 mg/dL (7.0-18.7); Calc. Creatinine Clearance 0 mL/min (70-130); Calcium 9.6 mg/dL (7.8-10.44); Carbon Dioxide 24 mmol/L (22-29); Chloride 108 mmol/L (98-107); Estimated GFR-MDRD 73; Globulin 3.2 g/dL (2.4-3.5); Glucose 122 mg/dL (70-105); Potassium 3.6 mmol/L (3.5-5.1); Protein, Total 6.9 g/dL (6.0-8.3); Sodium 141 mmol/L (136-145)
[2018-05-12] MEDS ORDERED: Ketorolac Tromethamine 60 MG/2 ML VIAL ONE (15:12)
[2018-05-12 15:20] LABS: Bilirubin Negative (Negative); Blood, Urine Negative (Negative); Clarity CLEAR (Clear); Glucose, Urine (Dipstick) Negative (Negative); Leukocyte Negative (Negative); Nitrite Negative (Negative); Protein, Urine (Dipstick) Trace mg/dL (Neg-Trace); Specific Gravity, Urine 1.024 (1.002-1.036)
== END 2018-05-12 16:00 | disposition home or self-care (01) ==
LOC: ERS 12:41
DX: T81.89XA Other complications of procedures, not elsewhere classified, initial encounter (principal); S31.502A Unspecified open wound of unspecified external genital organs, female, initial encounter; R11.0 Nausea
CPT/HCPCS: 36415; 51701; 80053; 81003; 85025; 96372; A4353; J1885

== ENCOUNTER 2018-05-13 12:30 | Outpatient (CLI) | payer SELFPAY ==
[2018-05-13] MEDS ORDERED: Sodium Chloride 0.9% 15 ML NEB ONE (15:00)
== END 2018-05-13 12:31 | disposition home or self-care (01) ==
LOC: WCC 12:30
PROVIDERS: ATTEND Family Medicine
DX: T81.89XD Other complications of procedures, not elsewhere classified, subsequent encounter (principal)
CPT/HCPCS: 97606; A4218

== ENCOUNTER 2018-05-16 12:49 | Outpatient (CLI) | payer SELFPAY | END 2018-05-16 12:50 | disposition home or self-care (01) | LOC: WCC 12:49 | PROVIDERS: ATTEND Family Medicine | DX: T81.89XD Other complications of procedures, not elsewhere classified, subsequent encounter (principal) | CPT/HCPCS: 97606 ==

== ENCOUNTER 2018-05-19 10:47 | Outpatient (CLI) | payer SELFPAY ==
[~2018-05-19 10:47] MED LIST changes: -Lidocaine 2% Jelly 5 ML TUBE ONE
== END 2018-05-19 10:48 | disposition home or self-care (01) ==
LOC: WCC 10:47
PROVIDERS: ATTEND Family Medicine
DX: T81.89XD Other complications of procedures, not elsewhere classified, subsequent encounter (principal)
CPT/HCPCS: 97606; A4218

== ENCOUNTER 2018-05-21 10:52 | Outpatient (CLI) | payer SELFPAY ==
--- NOTE | 2018-05-21 12:43 | PRG ---
DATE OF SERVICE: 05/21/2018 HISTORY: Ms. Bella Leroy is a very pleasant 52-year-old who presents to the Wound Center for evalu ation of a large wound of the left labia and buttock subsequent to debridement for Shayan's gangren e on 04/05/2018. The patient underwent repeat debridement of Shayan's gangrene on 04/06/2018. At the time of the second debridement negative pressure therapy was initiated intraoperatively. Upon di scharge from [facility], the patient was referred to the Wound Center for assi stance with dressing changes of the wound VAC. PHYSICAL EXAMINATION: VITAL SIGNS: Temperature 98.0, pulse 71, respirations 17, blood pressure 132/62. PERINEUM: A large wound of the left labia and buttock is present which measures approximately 12.5 x 2.5 cm. Granulation tissue is present within the wound margins. No purulent drainage is associated with the wound. No erythema of the skin surrounding the wound is present. No maceration of the ski n of the periwound is noted. The dimensions of the wound at the time of the patient's visit on 05/08 were approximately 21.0 x 4.0 cm. ASSESSMENT AND PLAN: 1. Large wound of left labia and buttock subsequent to debridement for Shayan's gangrene on [address] Artie Almonte. The patient underwent repeat debridement of Shayan's gangrene on 04/06. Negative pressure therapy was initiated intraoperatively at the time of the patient's second debridement and will be continued with dressing changes of the wound VAC here in the Wound Center. T issue cultures obtained on 05/08/2018 revealed the growth of Pseudomonas aeruginosa, Enterococcus spe cies and Peptostreptococcus prevotii. The patient is taking ciprofloxacin 500 mg p.o. b.i.d. x10 day s. Pseudomonas aeruginosa was found to be sensitive to ciprofloxacin. The patient was also prescrib ed a course of doxycycline. The patient's daughter states that the cost of doxycycline; however, was prohibitive. I will see Ms. Leroy again in 2 weeks. 2. Hypertension.
== END 2018-05-21 10:53 | disposition home or self-care (01) ==
LOC: WCC 10:52
PROVIDERS: ATTEND Family Medicine
DX: T81.89XD Other complications of procedures, not elsewhere classified, subsequent encounter (principal); I10 Essential (primary) hypertension
CPT/HCPCS: A4218

== ENCOUNTER 2018-05-23 11:10 | Outpatient (CLI) | payer SELFPAY ==
[2018-05-23] MEDS ORDERED: Sodium Chloride 0.9% 15 ML NEB ONE (15:28)
== END 2018-05-23 11:11 | disposition home or self-care (01) ==
LOC: WCC 11:10
PROVIDERS: ATTEND Family Medicine
DX: T81.89XD Other complications of procedures, not elsewhere classified, subsequent encounter (principal)
CPT/HCPCS: 97606; A4218

== ENCOUNTER 2018-05-26 10:57 | Outpatient (CLI) | payer SELFPAY ==
[2018-05-26] MEDS ORDERED: Sodium Chloride 0.9% 15 ML NEB ONE (15:49)
== END 2018-05-26 10:58 | disposition home or self-care (01) ==
LOC: WCC 10:57
PROVIDERS: ATTEND Family Medicine
DX: T81.89XD Other complications of procedures, not elsewhere classified, subsequent encounter (principal)
CPT/HCPCS: 97606; A4218

== ENCOUNTER 2018-05-28 11:08 | Outpatient (CLI) | payer SELFPAY | END 2018-05-28 11:09 | disposition home or self-care (01) | LOC: WCC 11:08 | PROVIDERS: ATTEND Family Medicine | DX: T81.89XD Other complications of procedures, not elsewhere classified, subsequent encounter (principal) | CPT/HCPCS: 97606 ==

== ENCOUNTER 2018-05-30 12:58 | Outpatient (CLI) | payer SELFPAY | END 2018-05-30 12:59 | disposition home or self-care (01) | LOC: WCC 12:58 | PROVIDERS: ATTEND Family Medicine | DX: T81.89XD Other complications of procedures, not elsewhere classified, subsequent encounter (principal) | CPT/HCPCS: 97606 ==

== ENCOUNTER 2018-06-02 11:50 | Outpatient (CLI) | payer SELFPAY | END 2018-06-02 11:51 | disposition home or self-care (01) | LOC: WCC 11:50 | PROVIDERS: ATTEND Family Medicine | DX: T81.89XD Other complications of procedures, not elsewhere classified, subsequent encounter (principal) | CPT/HCPCS: 97606 ==

== ENCOUNTER 2018-06-04 12:44 | Outpatient (CLI) | payer SELFPAY ==
--- NOTE | 2018-06-04 14:43 | PRG ---
DATE OF SERVICE: 06/04/2018 HISTORY: Ms. Bella Leroy is a very pleasant 53-year-old who presents to the Wound Center for evalu ation of a large wound of the left labia and buttock subsequent to debridement for Shayan's gangren e on 04/05/2018. The patient underwent repeat debridement of Shayan's gangrene on 04/06/2018. At the time of the second debridement, negative pressure therapy was initiated intraoperatively. Upon d ischarge from [facility], the patient was referred to the Wound Center for ass istance with dressing changes of the wound VAC. PHYSICAL EXAMINATION: VITAL SIGNS: Temperature 98.0, pulse 67, respirations 17, blood pressure 124/60. PERINEUM: A large wound of the left labia and buttock is present which measures approximately 11.7 x 2.0 cm. The dimensions of the wound at the time of the patient's visit on 05/21/2018 were approxima tely 12.5 x 2.5 cm. Granulation tissue is present within the wound margins. No purulent drainage is associated with the wound. No erythema of the skin surrounding the wound is present. No maceration of the skin of the periwound is noted. ASSESSMENT AND PLAN: 1. Large wound of left labia and buttock subsequent to debridement for Shayan's gangrene on [address] Artie Almonte. The patient underwent repeat debridement of Shayan's gangrene on 04/06. Negative pressure therapy was initiated intraoperatively at the time of the patient's second debridement and will be continued with dressing changes of the wound VAC here in the Wound Center. T issue cultures obtained on 05/08/2018 revealed the growth of Pseudomonas aeruginosa, Enterococcus spe cies and Peptostreptococcus prevotii. The patient was able to take ciprofloxacin 500 mg p.o. b.i.d. x10 days. Pseudomonas aeruginosa was found to be sensitive to ciprofloxacin. The patient was also p rescribed a course of doxycycline. The patient's daughter previously stated that the cost of doxycyc line; however, was prohibitive. I will see Ms. Leroy again in two weeks. 2. Hypertension.
== END 2018-06-04 12:45 | disposition home or self-care (01) ==
LOC: WCC 12:44
PROVIDERS: ATTEND Family Medicine
DX: T81.89XD Other complications of procedures, not elsewhere classified, subsequent encounter (principal); I10 Essential (primary) hypertension
CPT/HCPCS: 97606; A4218

== ENCOUNTER 2018-06-06 11:42 | Outpatient (CLI) | payer SELFPAY ==
[2018-06-06] MEDS ORDERED: Sodium Chloride 0.9% 15 ML NEB ONE (17:10)
== END 2018-06-06 11:43 | disposition home or self-care (01) ==
LOC: WCC 11:42
PROVIDERS: ATTEND Family Medicine
DX: T81.89XD Other complications of procedures, not elsewhere classified, subsequent encounter (principal); I10 Essential (primary) hypertension
CPT/HCPCS: 97606; A4218

== ENCOUNTER 2018-06-09 10:58 | Outpatient (CLI) | payer SELFPAY ==
[2018-06-09] MEDS ORDERED: Sodium Chloride 0.9% 15 ML NEB ONE (20:00)
== END 2018-06-09 10:59 | disposition home or self-care (01) ==
LOC: WCC 10:58
PROVIDERS: ATTEND Family Medicine
DX: T81.89XD Other complications of procedures, not elsewhere classified, subsequent encounter (principal)
CPT/HCPCS: 97606; A4218

== ENCOUNTER 2018-06-12 10:54 | Outpatient (CLI) | payer SELFPAY | END 2018-06-12 10:55 | disposition home or self-care (01) | LOC: WCC 10:54 | PROVIDERS: ATTEND Family Medicine | DX: T81.89XD Other complications of procedures, not elsewhere classified, subsequent encounter (principal) | CPT/HCPCS: 97606 ==

== ENCOUNTER 2018-06-17 11:05 | Outpatient (CLI) | payer SELFPAY | END 2018-06-17 11:06 | disposition home or self-care (01) | LOC: WCC 11:05 | PROVIDERS: ATTEND Family Medicine | DX: T81.89XD Other complications of procedures, not elsewhere classified, subsequent encounter (principal) | CPT/HCPCS: 97602 ==

== ENCOUNTER 2018-06-19 13:24 | Outpatient (CLI) | payer SELFPAY ==
--- NOTE | 2018-06-19 16:20 | PRG ---
DATE OF SERVICE: 06/19/2018 HISTORY: Ms. Bella Leroy is a very pleasant 53-year-old who presents to the Wound Center for evalu ation of a large wound of the left labia and buttock subsequent to debridement for Shayan's gangren e on 04/05/2018. The patient underwent repeat debridement of Shayan's gangrene on 04/06/2018. At the time of the second debridement, negative pressure therapy was initiated intraoperatively. Upon d ischarge from [facility], the patient was referred to the Wound Center for ass istance with dressing changes of the wound VAC. Since the patient's visit on 06/04/2018., negative p ressure therapy has been discontinued by Dr. Almonte as per Dr. Almonte. The patient is receiving we t to dry dressing changes for her left labial and buttock wound. PHYSICAL EXAMINATION: VITAL SIGNS: Temperature 97.9, pulse 62, respirations 20, blood pressure 133/63. PERINEUM: A large wound of the left labia and buttock is present which measures approximately 11.5 x 1.0 cm. The dimensions of the wound at the time of the patient's visit on 06/04/2018 were approxima tely 11.7 x 2.0 cm. Granulation tissue is present within the wound margins. No purulent drainage is associated with the wound. No erythema of the skin surrounding the wound is present. No maceration of the skin of the periwound is noted. ASSESSMENT AND PLAN: 1. Large wound of left labia and buttock subsequent to debridement for Shayan's gangrene on [address] Artie Almonte. The patient underwent repeat debridement of Shayan's gangrene on 04/06. Negative pressure therapy was initiated intraoperatively at the time of the patient's second debridement. The patient has completed a course of negative pressure therapy and now as per Dr. Patel era is receiving wet to dry dressing changes. The patient has been reassured that the wound appears to be healing without complications or any signs of infection. I will see Ms. Leroy again in two w eeks. 2. Hypertension.
[2018-06-19] MEDS ORDERED: Sodium Chloride 0.9% 15 ML NEB ONE (18:00)
== END 2018-06-19 13:25 | disposition home or self-care (01) ==
LOC: WCC 13:24
PROVIDERS: ATTEND Family Medicine
DX: N76.89 Other specified inflammation of vagina and vulva (principal); I10 Essential (primary) hypertension; Z98.890 Other specified postprocedural states
CPT/HCPCS: 97602; A4218

== ENCOUNTER 2018-07-03 12:02 | Outpatient (CLI) | payer SELFPAY ==
--- NOTE | 2018-07-03 15:39 | PRG ---
DATE OF SERVICE: 07/03/2018 HISTORY: Ms. Bella Leroy is a very pleasant 53-year-old, who presented to the Wound Center for evaluation of a large wound at the left labia and buttock subsequent to debridement for Shayan gangrene on 04/05/2018. The patient underwent a repeat debridement of Shayan gangrene on 04/06/2018. At the time of the second debridement, negative pressure therapy was initiated intraoperatively. Upon discharge from [facility], the patient was referred to the Wound Center for assistance with dressing changes of the wound VAC. The patient completed a course of negative pressure therapy and is now performing wet-to-dry dressing changes for her left labial and buttock wound as per Dr. Almonte. PHYSICAL EXAMINATION: VITAL SIGNS: Temperature 97.6, pulse 62, respirations 16, and blood pressure 154/70. PERINEUM: A wound of the left labia and buttock is present, which measures approximately 6.4 x 1.3 cm. The dimensions of the wound at the time of the patient's visit on 06/19/2018 were approximately 11.5 x 1.0 cm. Granulation tissue was present within the wound margins. No purulent drainage is associated with the wound. No erythema of the skin surrounding the wound is present. No maceration of the skin of the periwound is noted. ASSESSMENT AND PLAN: 1. Large wound of left labia and buttock subsequent to debridement for Shayan gangrene on 04/05/[address] Artie Almonte. The patient underwent repeat debridement of Shayan gangrene on 04/06/2018. Negative pressure therapy was initiated intraoperatively at the time of the patient's second debridement. The patient has completed a course of negative pressure therapy and is preforming wet-to-dry dressing changes as per Dr. Almonte. Again, the patient has been reassured that the wound appears to be healing without complications or any sings of infections. I will see Ms. Leroy again in 2 weeks. 2. Hypertension. Job ID: [id number]
== END 2018-07-03 12:03 | disposition home or self-care (01) ==
LOC: WCC 12:02
PROVIDERS: ATTEND Family Medicine
DX: T81.89XD Other complications of procedures, not elsewhere classified, subsequent encounter (principal); I10 Essential (primary) hypertension
CPT/HCPCS: A4218

== ENCOUNTER → 2018-07-17 | Outpatient (CLI) | payer OTHER, SELFPAY ==
--- NOTE | 2018-07-17 14:30 | PRG ---
DATE OF SERVICE: 07/17/2018 HISTORY: Ms. Bella Leroy is a very pleasant 53-year-old, who presents to the wound center for evaluation of a large wound of the left labia and buttock subsequent to debridement for Shayan gangrene on 04/05/2018. The patient underwent a repeat debridement of Shayan gangrene on 04/06/2018. At the time of the second debridement, negative pressure therapy was initiated intraoperatively. Upon discharge from [facility], the patient was referred to the wound center for assistance with dressing changes of the wound VAC. The patient completed a course of negative pressure therapy and performed wet-to-dry dressing changes for her left labial and buttock wound as per Dr. Almonte. OBJECTIVE: VITAL SIGNS: Temperature 98.1, pulse 127, respirations 18, and blood pressure 138/84. PERINEUM: The wound of the left labia and buttock measures approximately 0.4 x 0.3 cm. The dimensions of the wound at the time of the patient's visit on 07/03/2018 were approximately 6.4 x 1.3 cm. Granulation tissue was present within the wound margins. No purulent drainage is associated with the wound. No erythema of the skin surrounding the wound is present. No maceration of the skin of the periwound is noted. ASSESSMENT AND PLAN: 1. Wound of left labia and buttock subsequent to debridement for Shayan gangrene on 04/05/[address] Artie Almonte. The patient underwent repeat debridement of Shayan gangrene on 04/06/2018. Negative pressure therapy was initiated intraoperatively at the time of the patient's second debridement. The patient completed a course of negative pressure therapy and performed wet-to-dry dressing changes as per Dr. Almonte. The patient is now placing dry gauze over the wound. The wound has almost healed completely and Ms. Leroy will be discharged from clinic today with followup on a p.r.n. basis. 2. Hypertension. Job ID: [id number]
== END ==
LOC: CANPRECLI → WCC 10:26
PROVIDERS: ATTEND Family Medicine
DX: T81.89XD Other complications of procedures, not elsewhere classified, subsequent encounter (principal); I10 Essential (primary) hypertension
CPT/HCPCS: 97602; A4218

== ENCOUNTER 2018-08-06 10:43 | Emergency (ER) | payer OTHER, SELFPAY ==
[2018-08-06] MEDS ORDERED: Pantoprazole 40 MG VIAL ONE (11:50)
[2018-08-06 11:59] LABS: #Eosinphils 0.2 thou/uL (0.0-0.7); #Lymphocytes 1.9 thou/uL (1.20-3.40); #Monocytes 0.4 thou/uL (0.11-0.59); #Neutrophils 5.9 thou/uL (1.40-6.50); %Basophils 0.5 % (0.0-1.0); %Eosinophils 2.7 % (0.0-10.0); %Lymphocytes 22.5 % (21.0-51.0); %Monocytes 5.2 % (0.0-10.0); %Neutrophils 69.2 % (42.0-75.0); Hemoglobin 14.2 g/dL (12.0-16.0); Mean Corpuscular HGB CONC 32.9 g/dL (32.0-36.0); Mean Corpuscular Hemoglobin 30.1 pg (27.0-31.0); Mean Corpuscular Volume 91.5 fL (78.0-98.0); Mean Platelet Volume 7.8 fL (7.4-10.4); Platelet Count 269 thou/uL (130-400); RBC Distribution Width 13.1 % (11.5-14.5); Red Blood Cell (RBC) Count 4.74 mill/uL (4.20-5.40); White Blood Cell (WBC) Count 8.5 thou/uL (4.8-10.8)
[2018-08-06 12:26] LABS: ALT (SGPT) 14 U/L (8-55); AST (SGOT) 11 U/L (5-34); Albumin 4.4 g/dL (3.5-5.0); Alkaline Phosphatase 109 U/L (40-150); Anion Gap 12 mmol/L (10-20); BUN (Urea Nitrogen) 9 mg/dL (9.8-20.1); Bilirubin, Total 0.8 mg/dL (0.2-1.2); Calc. Creatinine Clearance 0 mL/min (70-130); Calcium 9.7 mg/dL (7.8-10.44); Carbon Dioxide 28 mmol/L (22-29); Chloride 106 mmol/L (98-107); Estimated GFR-MDRD 70; Globulin 3.1 g/dL (2.4-3.5); Glucose 114 mg/dL (70-105); Potassium 3.6 mmol/L (3.5-5.1); Protein, Total 7.5 g/dL (6.0-8.3); Sodium 142 mmol/L (136-145)
--- NOTE | 2018-08-06 13:00 | CT ---
CT ABDOMEN AND PELVIS WITH IV CONTRAST: 08/06/2018 HISTORY: Abdominal pain. GI bleed. COMPARISON: 08/24/2017 FINDINGS: The heart is mildly enlarged. There is a tiny pericardial effusion present. Minimal atelectasis is present at the left lung base. The liver, spleen, pancreas, bilateral adrenal glands, bilateral kidneys, partially distended urinary bladder, and adnexal structures, as well as the abdominal aorta, demonstrate a normal CT appearance. There is colonic diverticulosis. There is mild inflammatory stranding seen in a pericolonic location , at the anterior aspect of the pelvis, which may be related to early diverticulitis. No free intrap eritoneal gas or free fluid is seen, and there is no fluid collection seen in the abdomen or pelvic. The previously seen subcutaneous emphysema, inferior to the level of the pubic bone and left inferior pubic ramus, is not visualized, although this area was incompletely imaged. There are post surgical changes of the stomach, with evidence of a prior banding type procedure. Aga in, this is stable from the prior study, but a portion of the stomach does extend just above the leve l of this band, but this is also stable in position from prior exam. Incidental note is made of a circumaortic left renal vein. IMPRESSION: 1. Evidence of early diverticulitis. No fluid collection is seen to suggest an abscess. 2. Cardiomegaly with tiny pericardial effusion. 3. Post surgical changes of the stomach. 4. Small fat-containing umbilical hernia with minimal nonspecific stranding within the most anterior abdomen, just superior to the level of the umbilicus, of uncertain etiology. This does not have the typical appearance for fat necrosis and may be related to minimal inflammation in this region. POS: INDIRA
== END 2018-08-06 13:40 | disposition home or self-care (01) ==
LOC: ERS 10:43
DX: K92.1 Melena (principal); F17.210 Nicotine dependence, cigarettes, uncomplicated
CPT/HCPCS: 74177; 80053; 82274; 85025; 96361; 96365; 96375; C9113; J3411; J7050

== ENCOUNTER 2021-01-07 17:44 | Emergency (ER) | payer OTHER, SELFPAY | END 2021-01-07 20:07 | disposition home or self-care (01) | LOC: ERS 17:44 | DX: R60.0 Localized edema (principal); T81.30XA Disruption of wound, unspecified, initial encounter; F17.210 Nicotine dependence, cigarettes, uncomplicated ==

== ENCOUNTER 2021-02-01 21:41 | Emergency (ER) | payer SELFPAY ==
[2021-02-01 22:14] LABS: Bilirubin Negative (Negative); Blood, Urine Negative (Negative); Clarity Clear (Clear); Glucose, Urine (Dipstick) Normal (Negative); Ketone, Urine Negative (Negative); Leukocyte Negative Leu/uL (Negative); Nitrite Negative (Negative); Protein, Urine (Dipstick) Negative (Neg-Trace); Specific Gravity, Urine 1.005 (1.002-1.036); Urobilinogen Normal mg/dL (Less than 2)
[2021-02-01 23:03] LABS: #Eosinphils 0.3 thou/uL (0.0-0.7); #Lymphocytes 2.6 thou/uL (1.20-3.40); #Monocytes 0.5 thou/uL (0.11-0.59); #Neutrophils 4.2 thou/uL (1.40-6.50); %Basophils 0.3 % (0.0-1.0); %Eosinophils 3.7 % (0.0-10.0); %Lymphocytes 34.5 % (21.0-51.0); %Monocytes 6.3 % (0.0-10.0); %Neutrophils 55.2 % (42.0-75.0); Hemoglobin 12.6 g/dL (12.0-16.0); Mean Corpuscular Hemoglobin 30.1 pg (27.0-31.0); Mean Corpuscular Volume 88.6 fL (78.0-98.0); Mean Platelet Volume 8.4 fL (7.4-10.4); Platelet Count 265 thou/uL (130-400); RBC Distribution Width 16.1 % (11.5-14.5); White Blood Cell (WBC) Count 7.6 thou/uL (4.8-10.8)
[2021-02-01 23:18] LABS: Anion Gap 16 mmol/L (10-20); BUN (Urea Nitrogen) 14 mg/dL (9.8-20.1); Calc. Creatinine Clearance 0 mL/min (70-130); Calcium 9.8 mg/dL (7.8-10.44); Carbon Dioxide 26 mmol/L (22-29); Chloride 105 mmol/L (98-107); Glucose 87 mg/dL (70-105); Sodium 143 mmol/L (136-145)
[2021-02-02 00:42] LABS: ALT (SGPT) 11 U/L (8-55); AST (SGOT) 15 U/L (5-34); Albumin 4.5 g/dL (3.5-5.0); Alkaline Phosphatase 93 U/L (40-110); Bilirubin, Direct 0.2 mg/dL (0.1-0.3); Bilirubin, Total 0.5 mg/dL (0.2-1.2); Lipase 18 U/L (8-78); Protein, Total 7.2 g/dL (6.0-8.3)
[2021-02-02] MEDS ORDERED: Ketorolac Tromethamine 30 MG/ML VIAL ONE (01:54)
== END 2021-02-02 02:15 | disposition home or self-care (01) ==
LOC: ERS 21:41
DX: T81.31XA Disruption of external operation (surgical) wound, not elsewhere classified, initial encounter (principal); G89.18 Other acute postprocedural pain; R10.32 Left lower quadrant pain; F17.210 Nicotine dependence, cigarettes, uncomplicated
CPT/HCPCS: 36415; 74177; 80048; 80076; 81003; 83690; 85025; 96374; J1885

== ENCOUNTER 2022-02-07 14:14 | Emergency (ER) | payer SELFPAY ==
[2022-02-07 14:41] LABS: #Eosinphils 0.2 thou/uL (0.0-0.7); #Monocytes 0.5 thou/uL (0.11-0.59); #Neutrophils 4.5 thou/uL (1.40-6.50); %Basophils 0.3 % (0.0-1.0); %Eosinophils 2.6 % (0.0-10.0); %Lymphocytes 27.5 % (21.0-51.0); %Monocytes 7.3 % (0.0-10.0); %Neutrophils 62.4 % (42.0-75.0); Hemoglobin 14.1 g/dL (12.0-16.0); Mean Corpuscular HGB CONC 33.3 g/dL (32.0-36.0); Mean Corpuscular Hemoglobin 31.8 pg (27.0-31.0); Mean Corpuscular Volume 95.6 fL (78.0-98.0); Mean Platelet Volume 7.7 fL (7.4-10.4); Platelet Count 219 thou/uL (130-400); RBC Distribution Width 12.4 % (11.5-14.5); Red Blood Cell (RBC) Count 4.44 mill/uL (4.20-5.40); White Blood Cell (WBC) Count 7.2 thou/uL (4.8-10.8)
[2022-02-07 15:12] LABS: ALT (SGPT) 21 U/L (8-55); AST (SGOT) 14 U/L (5-34); Albumin 4.1 g/dL (3.5-5.0); Alkaline Phosphatase 116 U/L (40-110); Anion Gap 11 mmol/L (10-20); BUN (Urea Nitrogen) 8 mg/dL (9.8-20.1); Bilirubin, Total 0.6 mg/dL (0.2-1.2); Calc. Creatinine Clearance 0 mL/min (70-130); Calcium 9.8 mg/dL (7.8-10.44); Carbon Dioxide 27 mmol/L (22-29); Chloride 107 mmol/L (98-107); Estimated GFR 76; Glucose 112 mg/dL (70-105); Potassium 4.2 mmol/L (3.5-5.1); Protein, Total 7.1 g/dL (6.0-8.3); Sodium 141 mmol/L (136-145)
== END 2022-02-07 16:38 | disposition home or self-care (01) ==
LOC: ERS 14:14
DX: T81.42XA Infection following a procedure, deep incisional surgical site, initial encounter (principal); F17.210 Nicotine dependence, cigarettes, uncomplicated
CPT/HCPCS: 36415; 80053; 85025; 99283